=== PATIENT | female | born 1980 | race American Indian/Alaskan Native ===

== ENCOUNTER 2018-04-12 20:39 | Inpatient (IN) | payer OTHER ==
--- NOTE | 2018-04-13 01:01 | Ultrasound Report ---
FINAL REPORT PROCEDURE: US OB LIMITED TECHNIQUE: Real-time limited sonographic examination was performed for evaluation of size, position, heartbeat, fluid volume for each fetus with image documentation (1 or more fetuses). CPT 85253 HISTORY: Position COMPARISON: No prior studies are available for comparison. FINDINGS: Fetus is in breech presentation. Heart rate is 142 beats per minute. IMPRESSION: Fetus is in breech presentation.
[2018-04-13] MEDS ORDERED: REGLAN IV ONE (01:31)
[2018-04-13] MEDS ORDERED: BICITRA PO ONE (01:31)
[2018-04-13] MEDS ORDERED: PEPCID IV ONE (01:31)
--- NOTE | 2018-04-13 01:31 | History and Physical Report ---
History of Present Illness Date of examination: 04/13/18 Date of admission: 04/12/18 20:39 Chief complaint: Induction of labor History of present illness: Pt is a 37yo BF EDC 04/05/18; EGA 41 1/7 weeks presents for induction of labor. She received late care at [facility] since 30 weeks, and course has been unremarkable except for AMA. Ob u/s for presentation performed showing Breech presentation. She will therefore be delivered by C Section. records are available and GBS is Negative. Past History Past Medical History: no pertinent history Past Surgical History: no surgical history Family/Genetic History: none Social history: no significant social history, - Obstetrical History Expected Date of Delivery: 04/05/18 Actual Gestation: 41 Week(s) 1 Day(s) : 4 Medications and Allergies Allergies Allergy/AdvReac Type Severity Reaction Status Date / Time No Known Allergies Allergy Verified 04/13/18 01:37 Home Medications Medication Instructions Recorded Confirmed Last Taken Type Vit-Fe Fumar-FA [ 1 tab PO QDAY 04/13/18 04/13/18 04/12/18 History Vitamin] Review of Systems All systems: negative - Vital Signs Vital signs: Vital Signs Pulse BP Pulse Ox 81 123/69 100 04/12/18 21:56 04/12/18 21:56 04/12/18 21:56 Temp Pulse Resp BP Pulse Ox 98.1 F 83 16 126/74 100 04/12/18 22:00 04/13/18 01:18 04/12/18 22:00 04/13/18 01:18 04/12/18 22:00 - Physical Exam Breasts: Positive: deferred Cardiovascular: Regular rate Lungs: Positive: Clear to auscultation Abdomen: Positive: normal appearance Genitourinary (Female): Positive: normal external genitalia Uterus: Positive: enlarged Extremities: Positive: normal - Obstetrical FHR: category 1 Cervical Dilatation: 2 Cervical Effacement Percentage: 50 station: -3 Uterine Contraction Pattern: Irregular Uterine Tone Measurement Phase: Contraction Uterine Contraction Intensity: Mild Results Result Diagrams: 04/12/18 22:05 All other labs normal. Ultrasound: report reviewed Assessment and Plan - Patient Problems (1) 41 weeks gestation of Onset Date: 04/13/18 Current Visit: Yes Status: Acute Plan to address problem: A: IUP @ 41 1/7 weeks AMA Breech presentation P: Admit to L&D for C Section (2) AMA (advanced maternal age) multigravida 35+ Onset Date: 04/13/18 Current Visit: Yes Status: Acute Qualifiers: Trimester: third trimester Qualified Code(s): O09.523 - Supervision of elderly multigravida, third trimester (3) Breech presentation Onset Date: 04/13/18 Current Visit: Yes Status: Acute
[2018-04-13] MEDS ORDERED: PITOCin/NS 20 UNIT/1000ML DRIP 20 UNITS/1,000 ML BAG IV SCH ×2 (02:00→05:00)
[2018-04-13] MEDS ORDERED: ANCEF/STERILE WATER 2 GM/20 ML 2 GM/20 ML SYRINGE IV NR (02:00)
[2018-04-13] MEDS ORDERED: LACTATED RINGERS 1,000 ML IV SCH (02:00)
[2018-04-13 02:33] LABS: Basophils # (Auto) 0.1 K/mm3 (0.0-0.1); Eosinophils % (Auto) 0.5 % (0.0-4.3); Hematocrit 40.6 % (30.3-42.9); Hemoglobin 13.1 gm/dl (10.1-14.3); Lymphocytes # (Auto) 2.4 K/mm3 (1.2-5.4); Lymphocytes % (Auto) 26.9 % (13.4-35.0); Mean Corpuscular HGB Conc 32 % (30-34); Mean Corpuscular Hemoglobin 27 pg (28-32); Mean Corpuscular Volume 83 fl (79-97); Monocytes # (Auto) 0.8 K/mm3 (0.0-0.8); Monocytes % (Auto) 8.4 % (0.0-7.3); Platelet Count 213 K/mm3 (140-440); Red Blood Count 4.91 M/mm3 (3.65-5.03); Red Cell Distribution Width 15.5 % (13.2-15.2)
[2018-04-13] MEDS ORDERED: NACL 0.9% IR ONE (03:10)
[2018-04-13] MEDS ORDERED: WATER FOR IRRIG STERILE IR ONE (03:10)
--- NOTE | 2018-04-13 04:20 | Operative Report ---
Operative Report Operative Report: Date of procedure: 04/13/2018 Pre-operative diagnosis: 1. Intrauterine at 41-1/7 weeks 2. Advanced maternal age 3. Breech presentation Post-operative diagnosis: Same Procedure name(s): Primary low transverse section Surgeon: Adalberto Sprague MD Mutual Fund Manager: None Anesthesia: Spinal anesthesia by Dr. Mckenzie EBL: 600 mls Findings: A 4179 g female infant Apgars 8 at 1 minute 9 at 5 minutes. Double footling breech presentation. Clear amniotic fluid. Normal uterus. Normal tubes and ovaries bilaterally. Procedure: After the patient was prepped and draped in usual sterile fashion, and after satisfactory level of epidural anesthesia was obtained, the skin knife was used to make a transverse skin incision. The incision was excised down to layer of the fascia, which was nicked in the midline and extended laterally using the Bovie cautery. The rectus muscles were dissected off the rectus fascia both superiorly and inferiorly. The rectus bellies in the midline, and the peritoneum was entered under direct visualization. The peritoneal incision was extended superiorly and inferiorly. A bladder flap was created and the bladder blade was then placed. The uterus was scored in a curvilinear linear fashion, entered in the midline revealing clear amniotic fluid. The 's double footling breech was delivered onto the surgical field, the rest of the infant's body was delivered, cord was doubly clamped and cut and the infant was handed to the waiting respiratory team. Cord blood was then obtained. The placenta was manually removed from the uterus, and the uterus removed from its normal anatomical position. After gentle uterine lavage , the incision was inspected and found to be without extensions. It was then closed in 2 layers using 0 Vicryl suture in a running interlocking fashion, the second layer imbricating the first. After good hemostasis was achieved, copious amounts or irrigation was performed, and the gutters were suctioned free of blood and blood clots. Tisseel sealant was sprayed across the uterine incision. The uterus was then returned to its normal anatomical position, and after excellent hemostasis assured, the peritoneum was re-approximated using 3- 0 Vicryl suture in a running interlocking fashion, and then the rectus muscles were re-approximated using 3-0 Vicryl suture in a [id number] configuration. The fascia was then re-approximated using 0 Vicryl suture in running interlocking fashion. The subcutaneous layer was made hemostatic using Bovie cautery, the Tisseel sealant was sprayed across the fascial incision and the skin edges re-approximated using 4-0 Vicryl suture in a sub-cuticular fashion. Patient tolerated the procedure well was transported to recovery in stable condition.
[2018-04-13] MEDS ORDERED: ZOFRAN IV PRN (04:25)
[2018-04-13] MEDS ORDERED: MILK OF MAGNESIA PO PRN (04:25)
[2018-04-13] MEDS ORDERED: SENOKOT PO PRN (04:25)
[2018-04-13] MEDS ORDERED: TUCKS PAD TP PRN (04:25)
[2018-04-13] MEDS ORDERED: NARCAN 0.4 MG/1 ML IV PRN (04:25)
[2018-04-13] MEDS ORDERED: PERCOCET 5/325 PO PRN (04:25)
[2018-04-13] MEDS ORDERED: PHENERGAN PR PRN (04:25)
[2018-04-13] MEDS ORDERED: TYLENOL PO PRN (04:25)
[2018-04-13] MEDS ORDERED: MYLICON PO PRN (04:25)
[2018-04-13] MEDS ORDERED: LANSINOH TP PRN (04:25)
[2018-04-13] MEDS ORDERED: SODIUM CHLORIDE FLUSH SYRINGE 10 ML IV PRN (05:00)
[2018-04-13] MEDS: TORADOL IV PRN ×3 (09:22→23:14)
[2018-04-13] MEDS: FEOSOL PO SCH (10:00)
[2018-04-13] MEDS: PRENATAL VITAMIN PO SCH (10:00)
[2018-04-13] MEDS: ANCEF/NS 1 GM/50 ML 1 GM/50 ML BAG IV SCH ×2 (12:12→23:13)
[2018-04-13] MEDS: D5LR 1,000 ML IV SCH ×2 (14:58→22:42)
[2018-04-13 20:40] LABS: Hematocrit 34.1 % (30.3-42.9); Hemoglobin 11.3 gm/dl (10.1-14.3)
[2018-04-14] MEDS ORDERED: M-M-R II VACCINE SUB-Q ONE (04:27)
[2018-04-14] MEDS: MOTRIN PO PRN ×3 (05:31→21:36)
[2018-04-14] MEDS ORDERED: BOOSTRIX IM ONE (06:00)
--- NOTE | 2018-04-14 08:36 | Progress Note ---
Assessment and Plan - Patient Problems (1) 41 weeks gestation of Onset Date: 04/13/18 Current Visit: Yes Status: Resolved (2) AMA (advanced maternal age) multigravida 35+ Onset Date: 04/13/18 Current Visit: Yes Status: Chronic Qualifiers: Trimester: third trimester Qualified Code(s): O09.523 - Supervision of elderly multigravida, third trimester (3) Breech presentation Onset Date: 04/13/18 Current Visit: Yes Status: Resolved Qualifiers: Fetus number: single or unspecified fetus Qualified Code(s): O32.1XX0 - Maternal care for breech presentation, not applicable or unspecified (4) Status post Onset Date: 04/14/18 Current Visit: Yes Status: Resolved Plan to address problem: A: S/P C section - POD #1 Doing well P: Continue RPOC Anticipate discharge in 24-48hrs Subjective - Subjective Date of service: 04/14/18 Principal diagnosis: s/p C Section - POD #1 Interval history: Pt is feeling well without complaints. Bleeding improved. Patient reports: appetite normal, voiding normally, pain well controlled, flatus , ambulating normally, no dizzy ambulation, no nauseated : doing well, nursing well Objective - Vital Signs Latest vital signs: Vital Signs Temp Pulse Resp BP 04/14/18 01:24 98.4 F 72 20 118/65 04/13/18 20:05 98.2 F 66 18 106/62 04/13/18 16:10 97.7 F 70 18 112/56 04/13/18 14:42 98.9 F 64 18 107/67 04/13/18 09:15 97.7 F 63 18 117/71 Intake and Output 04/13/18 04/14/18 04/14/18 22:59 06:59 14:59 Intake Total 1446.667 240 Output Total 1600 400 Balance -153.333 -160 Intake: IV 966.667 D5lr 1,000 ml @ 125 mls/ 966.667 hr IV DIRECT DIANDRA Rx#: [id number] Oral 240 Intake, Free Water 240 240 Output: Urine 1600 400 Void 1600 400 Other: Total, Intake Amount 240 Total, Output Amount 800 400 - Exam Breasts: Present: deferred Cardiovascular: Present: Regular rate Lungs: Present: Clear to auscultation Abdomen: Present: normal appearance, soft Uterus: Present: normal, firm, fundal height below umbilicus Extremities: Present: normal Incision: Present: normal, dry, intact, dressed - Labs Labs: Laboratory Tests 04/12/18 04/12/18 04/12/18 22:05 22:05 22:05 WBC 9.0 RBC 4.91 Hgb 13.1 Hct 40.6 MCV 83 MCH 27 L MCHC 32 RDW 15.5 H Plt Count 213 Lymph % (Auto) 26.9 Moca % (Auto) 8.4 H Eos % (Auto) 0.5 Baso % (Auto) 1.0 Lymph # 2.4 Moca # 0.8 Eos # 0.0 Baso # 0.1 Seg Neutrophils % 63.2 Seg Neutrophils # 5.7 Hep Bs Antigen Non-reactive Blood Type O POSITIVE Antibody Screen Negative 04/13/18 19:41 WBC RBC Hgb 11.3 Hct 34.1 D MCV MCH MCHC RDW Plt Count Lymph % (Auto) Moca % (Auto) Eos % (Auto) Baso % (Auto) Lymph # Moca # Eos # Baso # Seg Neutrophils % Seg Neutrophils # Hep Bs Antigen Blood Type Antibody Screen
[2018-04-14] MEDS: FEOSOL PO SCH (11:02)
[2018-04-14] MEDS: PRENATAL VITAMIN PO SCH (11:03)
[2018-04-14] MEDS: NORCO 5/325 PO PRN ×2 (15:27→21:36)
[2018-04-15] MEDS: NORCO 5/325 PO PRN (03:28)
[2018-04-15] MEDS: MOTRIN PO PRN ×2 (03:28→14:09)
--- NOTE | 2018-04-15 10:57 | Progress Note ---
Assessment and Plan - Patient Problems (1) 41 weeks gestation of Onset Date: 04/13/18 Current Visit: Yes Status: Resolved (2) AMA (advanced maternal age) multigravida 35+ Onset Date: 04/13/18 Current Visit: Yes Status: Chronic Qualifiers: Trimester: third trimester Qualified Code(s): O09.523 - Supervision of elderly multigravida, third trimester (3) Breech presentation Onset Date: 04/13/18 Current Visit: Yes Status: Resolved Qualifiers: Fetus number: single or unspecified fetus Qualified Code(s): O32.1XX0 - Maternal care for breech presentation, not applicable or unspecified (4) Status post Onset Date: 04/14/18 Current Visit: Yes Status: Resolved Plan to address problem: A: S/P C section - POD #2 Doing well P: may go home today. Subjective - Subjective Date of service: 04/15/18 Principal diagnosis: s/p C Section - POD #2 Interval history: Pt is feeling well without complaints. She is tolerating a reg diet without nausea or vomiting, ambulating and voiding without difficulty. Patient reports: appetite normal, voiding normally, pain well controlled, flatus , ambulating normally, no dizzy ambulation, no nauseated : doing well, nursing well Objective - Vital Signs Latest vital signs: Vital Signs Temp Pulse Resp BP 04/15/18 07:30 98.7 F 69 16 118/77 04/14/18 23:30 98.6 F 77 18 101/79 Intake and Output 04/14/18 04/15/18 04/15/18 22:59 06:59 14:59 Intake Total 300 600 Balance 300 600 Intake: Intake, Free Water 300 600 - Exam Breasts: Present: deferred Cardiovascular: Present: Regular rate Lungs: Present: Clear to auscultation Abdomen: Present: normal appearance, soft Uterus: Present: normal, firm, fundal height below umbilicus Extremities: Present: normal Incision: Present: normal, dry, intact, other (skin blisters)
[2018-04-15] MEDS: FEOSOL PO SCH (11:09)
[2018-04-15] MEDS: PRENATAL VITAMIN PO SCH (11:09)
--- NOTE | 2018-04-15 13:54 | Discharge Summary ---
Providers - Providers Date of Admission: 04/12/18 20:39 Date of discharge: 04/15/18 Attending physician: ISABELA BROCK Primary care physician: ISABELA BROCK Hospitalization Reason for admission: section, IUP at term, other (Breech) Delivery: Procedure: section, primary low transverse Episiotomy: none Laceration: none Incision: normal, dry, intact Other procedures: none complications: none Discharge diagnosis: IUP at term delivered [place] baby: female Hospital course: Pt is a 37yo BF EDC 04/05/18; EGA 41 1/7 weeks who presented for induction of labor, but Ob u/s showed Breech presentation, and therefore was delivered by C Section. She tolerated the C Section well, and post operative course was unremarkable. By POD #2 she was tolerating a reg diet without nausea or vomiting, ambulating and voiding without difficulty. She was therefore discharged to home on POD #2 in stable condition. Condition at discharge: Good Disposition: DC-01 TO HOME OR SELFCARE - Discharge Diagnoses (1) 41 weeks gestation of Status: Resolved (2) AMA (advanced maternal age) multigravida 35+ Status: Chronic Qualifiers: Trimester: third trimester Qualified Code(s): O09.523 - Supervision of elderly multigravida, third trimester (3) Breech presentation Status: Resolved Qualifiers: Fetus number: single or unspecified fetus Qualified Code(s): O32.1XX0 - Maternal care for breech presentation, not applicable or unspecified (4) Status post Status: Resolved Plan - Discharge Medications Prescriptions: Ferrous Sulfate [Feosol 325 MG tab] 325 mg PO BID #60 tablet HYDROcodone/APAP 5-325 [[place] 5/325] 1 each PO Q6HR PRN #30 tablet PRN Reason: Pain Ibuprofen [Motrin] 800 mg PO Q8HR PRN #30 tablet PRN Reason: Moder Pain Unrelieved By [place] Vit Calc,Iron,Folic [ Vitamins] 1 each PO DAILY #30 tablet - Provider Discharge Summary Activity: routine, no sex for 6 weeks, no heavy lifting 4 weeks, no strenuous exercise Diet: routine Instructions: routine Additional instructions: [] Smoking cessation referral if applicable(refer to patient education folder for contact #) [] Refer to [facility] Booklet Call your doctor immediately for: * Fever > 100.5 * Heavy vaginal bleeding ( >1 pad per hour) * Severe persistent headache * Shortness of breath * Reddened, hot, painful area to leg or breast * Drainage or odor from incision. * Keep incision clean and dry at all times and follow doctor's instructions regarding bathing/showering - Follow up plan Follow up: ISABELA BROCK MD [Primary Care Provider] - 14 Days
[2018-04-15] MEDS ORDERED: ANTIBIOTIC OINT TP PRN (13:58)
[2018-04-15 17:46] VITALS: BP 120/79
== END 2018-04-15 17:55 | disposition home or self-care (01) | DRG 766 ==
LOC: LD 20:39 → APU 04-13 04:29 → OB 04-13 05:42
PROVIDERS: ADMIT Obstetrics & Gynecology; ATTEND Obstetrics & Gynecology
PROC: 10D00Z1 Extraction of Products of Conception, Low, Open Approach (ICD-10-PCS; principal; 2018-04-12)
PROC: 3E0234Z Introduction of Serum, Toxoid and Vaccine into Muscle, Percutaneous Approach (ICD-10-PCS; 2018-04-13)
DX: O32.8XX0 Maternal care for other malpresentation of fetus, not applicable or unspecified (principal); Z3A.41 41 weeks gestation of pregnancy; Z37.0 Single live birth; Z23 Encounter for immunization
CPT/HCPCS: 36415; 59025; 76815; 85014; 85018; 85025; 86706; 86850; 86900; 86901; 90471; 90715; 99211; C9250; G0463; J0690; J1885; J7121

== ENCOUNTER 2018-06-05 20:52 | Emergency (ER) | payer SELFPAY ==
[2018-06-05 21:51] LABS: Hematocrit 44.6 % (30.3-42.9); Hemoglobin 14.5 gm/dl (10.1-14.3); Mean Corpuscular HGB Conc 33 % (30-34); Mean Corpuscular Volume 79 fl (79-97); Platelet Count 303 K/mm3 (140-440); Red Blood Count 5.67 M/mm3 (3.65-5.03)
[2018-06-05 21:55] LABS: Mean Corpuscular Hemoglobin 26 pg (28-32)
[2018-06-05 22:07] LABS: Alanine Aminotransferase 16 units/L (7-56); Albumin 4.9 g/dL (3.9-5); BUN/Creatinine Ratio 21; Blood Urea Nitrogen 15 mg/dL (7-17); Calcium 10.1 mg/dL (8.4-10.2); Hemolysis Index 2
[2018-06-05] MEDS ORDERED: REGLAN IV ONE (23:03)
[2018-06-05] MEDS ORDERED: TORADOL IV ONE (23:03)
[2018-06-05] MEDS ORDERED: BENADRYL IV ONE (23:03)
[2018-06-05] MEDS ORDERED: NACL 0.9% 1000 ML 1,000 ML IV ONE (23:04)
--- NOTE | 2018-06-05 23:04 | Emergency Department Report ---
ED Headache HPI - General Chief Complaint: Headache Stated Complaint: HEADACHE/DIZZINESS Time Seen by Provider: 06/05/18 22:51 Source: patient, old records Exam Limitations: no limitations - History of Present Illness Initial Comments: 37-year-old female with no significant past medical history presents to the hospital approximately 6 weeks with delivery here on 04/13 presents to the hospital with complaints of right-sided headache that started approximately 2 PM. Headache is on the right side of the head, rated 9/10 in intensity, constant, no improvement with ibuprofen, and aggravated by light. Positive nausea without vomiting. + lightheadness reported. Patient denies neck stiffness, fever, focal weakness, or frequent numbness. As per medical record review patient had a due to breech delivery and there is no course of hypertension and preeclampsia. Allergies/Adverse Reactions: Allergies No Known Allergies Allergy (Verified 04/13/18 01:37) Home Medications: Ambulatory Orders Ferrous Sulfate [Feosol 325 MG tab] 325 mg PO BID #60 tablet 04/13/18 HYDROcodone/APAP 5-325 [[place] 5/325] 1 each PO Q6HR PRN #30 tablet 04/13/18 Ibuprofen [Motrin] 800 mg PO Q8HR PRN #30 tablet 04/13/18 Vit Calc,Iron,Folic [ Vitamins] 1 each PO DAILY #30 tablet Vit-Fe Fumar-FA [ Vitamin] 1 tab PO QDAY 04/13/18 Butalb/Acetamin/Caff 50-325-40 [Fioricet] 1 tab PO Q8HR PRN #20 tablet 06/06/18 Ibuprofen [Motrin] 800 mg PO Q8HR PRN #30 tablet 06/06/18 Ondansetron [Zofran Odt] 4 mg PO Q8HR PRN #20 tab.rapdis 06/06/18 ED Review of Systems ROS: Stated complaint: HEADACHE/DIZZINESS Other details as noted in HPI Comment: All other systems reviewed and negative ED Past Medical Hx - Past Medical History Hx Hypertension: No Hx Congestive Heart Failure: No Hx Diabetes: No Hx Deep Vein Thrombosis: No Hx Renal Disease: No Hx Sickle Cell Disease: No Hx Seizures: No Hx Asthma: No Hx COPD: No Hx HIV: No - Surgical History Additional Surgical History: - Social History Smoking Status: Never Smoker Substance Use Type: None - Medications Home Medications: Home Medications Medication Instructions Recorded Confirmed Last Taken Type Ferrous Sulfate [Feosol 325 MG tab] 325 mg PO BID #60 tablet 04/13/18 Unknown Rx HYDROcodone/APAP 5-325 [[place] 1 each PO Q6HR PRN #30 tablet 04/13/18 Unknown Rx 5/325] Ibuprofen [Motrin] 800 mg PO Q8HR PRN #30 tablet 04/13/18 Unknown Rx Vit Calc,Iron,Folic 1 each PO DAILY #30 tablet 04/13/18 Unknown Rx [ Vitamins] Vit-Fe Fumar-FA [ 1 tab PO QDAY 04/13/18 04/13/18 04/12/18 History Vitamin] Butalb/Acetamin/Caff 50-325-40 1 tab PO Q8HR PRN #20 tablet 06/06/18 Unknown Rx [Fioricet] Ibuprofen [Motrin] 800 mg PO Q8HR PRN #30 tablet 06/06/18 Unknown Rx Ondansetron [Zofran Odt] 4 mg PO Q8HR PRN #20 tab.rapdis 06/06/18 Unknown Rx ED Physical Exam - General Limitations: No Limitations - Other Other exam information: General: No limitations, patient is alert in no acute distress Head exam: Atraumatic, normocephalic Eyes exam: Normal appearance, pupils equal reactive to light, extraocular movements intact ENT: Moist mucous membrane, normal oropharynx Neck exam: Normal inspection, full range of motion, no meningismus nontender Respiratory exam: Clear to auscultation bilateral, no wheezes, rales, crackles Cardiovascular: Normal rate and rhythm, normal heart sounds Abdomen: Soft, nondistended, and nontender, with normal bowel sounds, no rebound, or guarding Extremity: Full range of motion normal inspection no deformity Back: Normal Inspection, full range of motion, no tenderness Neurologic: Alert, oriented x3, cranial nerves intact, no motor or sensory deficit, [id number] function intake Psychiatric: normal affect, normal mood Skin: Warm, dry, intact ED Course Vital Signs 06/05/18 06/05/18 06/05/18 22:44 22:45 23:00 Pulse Rate 69 Respiratory 16 Rate Blood Pressure 119/78 129/79 Blood Pressure 135/78 [Right] O2 Sat by Pulse 99 98 98 Oximetry 06/05/18 23:37 Pulse Rate Respiratory 16 Rate Blood Pressure Blood Pressure [Right] O2 Sat by Pulse Oximetry - Reevaluation(s) Reevaluation #1: 06/06/18 01:34 pt reports feeling much better 2 hours after receiving iv meds ED Medical Decision Making - Lab Data Result diagrams: 06/05/18 21:35 06/05/18 21:35 Lab Results 06/05/18 06/05/18 06/05/18 Range/Units 21:08 21:35 21:35 WBC 13.8 H (4.5-11.0) K/mm3 RBC 5.67 H (3.65-5.03) M/mm3 Hgb 14.5 H (10.1-14.3) gm/dl Hct 44.6 H (30.3-42.9) % MCV 79 (79-97) fl MCH 26 L (28-32) pg MCHC 33 (30-34) % RDW 16.0 H (13.2-15.2) % Plt Count 303 (140-440) K/mm3 Sodium 142 (137-145) mmol/L Potassium 4.3 (3.6-5.0) mmol/L Chloride 98.1 (98-107) mmol/L Carbon Dioxide 29 (22-30) mmol/L Anion Gap 19 mmol/L BUN 15 (7-17) mg/dL Creatinine 0.7 (0.7-1.2) mg/dL Estimated GFR > 60 ml/min BUN/Creatinine Ratio 21 % Glucose 155 H (65-100) mg/dL POC Glucose 153 H (70-105) Calcium 10.1 (8.4-10.2) mg/dL Total Bilirubin 0.30 (0.1-1.2) mg/dL AST 19 (5-40) units/L ALT 16 (7-56) units/L Alkaline Phosphatase 109 (35-129) units/L Total Protein 7.6 (6.3-8.2) g/dL Albumin 4.9 (3.9-5) g/dL Albumin/Globulin Ratio 1.8 % Urine Color (Yellow) Urine Turbidity (Clear) Urine pH (5.0-7.0) Ur Specific [place] (1.003-1.030) Urine Protein (Negative) mg/dL Urine Glucose (UA) (Negative) mg/dL Urine Ketones (Negative) mg/dL Urine Blood (Negative) Urine Nitrite (Negative) Urine Bilirubin (Negative) Urine Urobilinogen (<2.0) mg/dL Ur Leukocyte Esterase (Negative) Urine WBC (Auto) (0.0-6.0) /HPF Urine RBC (Auto) (0.0-6.0) /HPF U Epithel Cells (Auto) (0-13.0) /HPF Urine Mucus /HPF 06/05/18 Range/Units 23:37 WBC (4.5-11.0) K/mm3 RBC (3.65-5.03) M/mm3 Hgb (10.1-14.3) gm/dl Hct (30.3-42.9) % MCV (79-97) fl MCH (28-32) pg MCHC (30-34) % RDW (13.2-15.2) % Plt Count (140-440) K/mm3 Sodium (137-145) mmol/L Potassium (3.6-5.0) mmol/L Chloride (98-107) mmol/L Carbon Dioxide (22-30) mmol/L Anion Gap mmol/L BUN (7-17) mg/dL Creatinine (0.7-1.2) mg/dL Estimated GFR ml/min BUN/Creatinine Ratio % Glucose (65-100) mg/dL POC Glucose (70-105) Calcium (8.4-10.2) mg/dL Total Bilirubin (0.1-1.2) mg/dL AST (5-40) units/L ALT (7-56) units/L Alkaline Phosphatase (35-129) units/L Total Protein (6.3-8.2) g/dL Albumin (3.9-5) g/dL Albumin/Globulin Ratio % Urine Color Yellow (Yellow) Urine Turbidity Hazy (Clear) Urine pH 7.0 (5.0-7.0) Ur Specific [place] 1.019 (1.003-1.030) Urine Protein <15 mg/dl (Negative) mg/dL Urine Glucose (UA) Neg (Negative) mg/dL Urine Ketones Neg (Negative) mg/dL Urine Blood Neg (Negative) Urine Nitrite Neg (Negative) Urine Bilirubin Neg (Negative) Urine Urobilinogen < 2.0 (<2.0) mg/dL Ur Leukocyte Esterase Sm (Negative) Urine WBC (Auto) 1.0 (0.0-6.0) /HPF Urine RBC (Auto) 1.0 (0.0-6.0) /HPF U Epithel Cells (Auto) 4.0 (0-13.0) /HPF Urine Mucus Few /HPF - Radiology Data Radiology results: report reviewed FINAL REPORT PROCEDURE: CT HEAD/BRAIN WO CON TECHNIQUE: Computerized tomography of the head was performed without contrast material. HISTORY: headache dizzy 6 wk COMPARISON: No prior studies are available for comparison. FINDINGS: Skull and scalp: Normal. Paranasal sinuses: Normal. Ventricles and subarachnoid spaces: Normal. Cerebrum: No evidence of hemorrhage, acute infarction or mass . Cerebellum and brainstem: No evidence of hemorrhage, acute infarction or mass. Vasculature: Normal. Comments: None. IMPRESSION: Normal Examination - Medical Decision Making unilateral burt suggestive of migraine improved with IV Benadryl, Reglan, Toradol, and [address] head unremarkable Patient will be discharged home with additional medications for pain. She is breast-feeding - Differential Diagnosis migraine, ICH, sah, cluster burt, tension burt Critical Care Time: No Critical care attestation.: If time is entered above; I have spent that time in minutes in the direct care of this critically ill patient, excluding procedure time. ED Disposition Clinical Impression: Migraine Disposition: DC-01 TO HOME OR SELFCARE Is pt being admited?: No Does the pt Need Aspirin: No Condition: Stable Instructions: Migraine Headache (ED) Additional Instructions: Take the medication as prescribed. Follow up with your doctor. Return if symptoms worsen as indicated by your discharge instructions Prescriptions: Butalb/Acetamin/Caff 50-325-40 [Fioricet] 1 tab PO Q8HR PRN #20 tablet PRN Reason: Headache Ibuprofen [Motrin] 800 mg PO Q8HR PRN #30 tablet PRN Reason: Pain, Moderate (4-6) Ondansetron [Zofran Odt] 4 mg PO Q8HR PRN #20 tab.rapdis PRN Reason: Nausea And Vomiting Referrals: TANIA ARREDONDO MD [Staff Physician] - 3-5 Days (Neurology) ERNIE GAVIN JR, MD [Staff Physician] - 3-5 Days (Primary care doctor) [facility] [Provider Group] - 3-5 Days (primary care clinic) Time of Disposition: 01:38
[2018-06-06 00:39] LABS: Bilirubin,Urine NEG (Negative); Blood,Urine NEG (Negative); Color,Urine Yellow (Yellow); Mucus,Urine FEW /HPF; Protein,Urine <15 mg/dL mg/dL (Negative); Urobilinogen,Urine < 2.0 mg/dL (<2.0)
--- NOTE | 2018-06-06 00:45 | Cat Scan Report ---
FINAL REPORT PROCEDURE: CT HEAD/BRAIN WO CON TECHNIQUE: Computerized tomography of the head was performed without contrast material. HISTORY: headache dizzy 6 wk COMPARISON: No prior studies are available for comparison. FINDINGS: Skull and scalp: Normal. Paranasal sinuses: Normal. Ventricles and subarachnoid spaces: Normal. Cerebrum: No evidence of hemorrhage, acute infarction or mass . Cerebellum and brainstem: No evidence of hemorrhage, acute infarction or mass. Vasculature: Normal. Comments: None. IMPRESSION: Normal Examination
[2018-06-06 02:24] VITALS: BP 118/69
== END 2018-06-06 02:23 | disposition home or self-care (01) ==
LOC: ED 20:52
DX: G43.909 Migraine, unspecified, not intractable, without status migrainosus (principal)
CPT/HCPCS: 36415; 70450; 80053; 81001; 82962; 85027; 93005; 93010; 96361; 96374; 96375; 99284; J1200; J1885; J2765; J7030